=== PATIENT | female | born 1990 | race Asian ===

== ENCOUNTER → 2016-12-18 | Outpatient (CLI) | payer OTHER ==
--- NOTE | 2016-12-18 15:52 | Diagnostic Imaging Report ---
CLINICAL INDICATION: Patient with thyromegaly. COMPARISONS: None. FINDINGS: THYROID NODULES: None. THYROID GLAND: The thyroid gland is diffusely heterogeneous and upper limits of normal size with normal-appearing Doppler flow. The right lobe measures 5.4 cm x 1.5 cm x 1.8 cm and the left lobe measures 4.9 cm x 1.3 cm x 1.9 cm in their three dimensions. ISTHMUS: The isthmus is unremarkable and measures 4 mm in thickness. IMPRESSION: The thyroid gland is diffusely heterogeneous and upper limits of normal size. There are no thyroid nodules seen. Dictated by: Dictated on workstation # [id number]
== END ==
LOC: RAD 10:59
PROVIDERS: ATTEND Internal Medicine
DX: E01.0 Iodine-deficiency related diffuse (endemic) goiter (principal)
CPT/HCPCS: 76536